=== PATIENT | female | born 1935 | race Caucasian/White ===

== ENCOUNTER 2017-03-16 16:57 | Inpatient (IN) | payer BC ==
--- NOTE | ~2017-03-16 | DS ---
Discharge Summary [id number] [place]. [address] NAME: ELI BRADLEY : 37 STATUS : DIS IN PAT#: [id number] AGE: 81 ADM/REG DATE : 03/16/17 MR#: [id number] REPORT SERV DATE: 03/18/17 DICTATED BY: NANNETTE ZUÑIGA DATE: 03/18/17 REPORT STATUS : Draft TRANSCRIBED BY: ANAIS DATE: 03/18/17 ADMISSION DATE: 03/16/2017 DISCHARGE DATE: 03/18/2017 DISCHARGE DIAGNOSES: 1. Community-acquired pneumonia, improving. 2. 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 Clifford. 3. Cough. 4. Hypertension, stable. 5. Obstructive sleep apnea. Continue CPAP at home. IMAGING: Chest x-ray, 02/24/2017: Impression: Persistent asymmetric alveolar opacity overlying the right superior hilar aspect of the lung, most concerning for pneumonia with underlying COPD. CONSULTATIONS: Oncology, Cristian Clifford M.D. COURSE OF HOSPITAL STAY: Please refer to history and physical dictated on 03/16/2017 for complete admission details as well as Dr. Clifford's dictation. This patient is an 81-year-old female who presented as a direct admission due to progressive cough and low-grade fever. The patient was admitted for IV antibiotics and further evaluation. 1. Community-acquired pneumonia. The patient had previously been on Augmentin and Levaquin at home. It was felt that she was having increase in symptoms and low-grade temp. The patient was evaluated by Dr. Clifford and then was sent as a direct admission. The patient was started on Rocephin and Zithromax IV. The patient was then changed to p.o. antibiotics. The patient has tolerated well. Blood cultures were obtained which were normal. The patient will be discharged home to complete her Levaquin antibiotic that was previously filled prior to this admission. She will follow up with Dr. Clifford on 03/20/2017. The patient will also be provided a prescription for guaifenesin and Tessalon Perles to use as needed at home. 2. 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 The patient has been followed by Oncology during her stay. She will follow up with Dr. Clifford on 03/20/2017. 3. Progressive cough. The patient has continued with guaifenesin and Tessalon Perles and prescription will be provided upon discharge. 4. Hypertension. The patient's blood pressure has been monitored and has remained stable. We will continue home medications at discharge. 5. Obstructive sleep apnea. The patient did use her own CPAP during her stay. She will continue this upon discharge. DISCHARGE MEDICATIONS: 1. Lexapro 10 mg one p.o. every morning. 2. Guaifenesin LA 600 mg and 1200 mg p.o. twice daily. 3. Synthroid 50 mcg tablet one p.o. every morning. Discharge Summary [address] [place]. [address] NAME: ELI BRADLEY : 37 STATUS : DIS IN PAT#: [id number] AGE: 81 ADM/REG DATE : 03/16/17 MR#: [id number] REPORT SERV DATE: 03/18/17 DICTATED BY: NANNETTE ZUÑIGA DATE: 03/18/17 REPORT STATUS : Draft TRANSCRIBED BY: ANAIS DATE: 03/18/17 4. Savana 180 mg one p.o. every morning. 5. Creon 24,000 units two caps p.o. three times daily. 6. Prilosec 20 mg one p.o. every morning. 7. Flonase nasal spray 50 mcg daily p.r.n. 8. Klonopin 0.5 mg one p.o. at bedtime. 9. Imodium 2 mg p.o. every six hours as needed for diarrhea. 10.Gas-X 80 mg p.o. p.r.n. 11.Topicort cream 0.25% 15 topical p.r.n. Patient is being discharged home in hemodynamically stable condition. She will follow up with Dr. Clifford on 03/20/2017. She will also complete Levaquin prescription previously filled prior to this admission. She also will be provided two prescriptions for cough as needed also. This discharge took less than 30 minutes. [facility]/ANAIS Nannette Zuñiga NP / [id number] CC: MD Jenny Mcclelland D.O.
--- NOTE | ~2017-03-16 | HP ---
History And Physical [address] [place]. [address] NAME: ELI BRADLEY : 37 STATUS : ADM IN [facility]#: [id number] AGE: 81 ADM/REG DATE : 03/16/17 MR#: [id number] REPORT SERV DATE: 03/16/17 DICTATED BY: NANNETTE ZUÑIGA DATE: 03/16/17 REPORT STATUS : Draft TRANSCRIBED BY: MODLatrice DATE: 03/16/17 DATE OF ADMISSION: 03/16/2017 CHIEF COMPLAINT: Progressive cough and low-grade fever. HISTORY OF PRESENT ILLNESS: This patient is an 81-year-old female, who presented as a direct admission from Dr. Clifford's office. She does present with complaints of persistent cough ongoing for greater than seven days, low-grade fever, increased shortness of breath. The patient does state that she has recently completed five days of Augmentin and three days of Levaquin. The patient does state that she has continued to have low-grade fevers at home. She has a persistent cough, occasional, productive. She does state that she had loose stool while on Augmentin but this has resolved. This patient does present with a history of pancreatic neuroendocrine cancer with known liver metastasis. She is under the care of Dr. Clifford. She receives monthly Sandostatin injections. REVIEW OF SYSTEMS: Otherwise negative review of systems except what is listed above. PAST MEDICAL HISTORY: 1. Neuroendocrine pancreatic cancer with known liver metastasis under the care of Dr. Clifford. 2. Obstructive sleep apnea. 3. Anxiety. 4. Hypertension. 5. PVCs. 6. Hypothyroidism. PAST SURGICAL HISTORY: 1. Right Port-A-Cath placement. 2. Whipple, 12/2015. 3. Appendectomy. 4. Hernia repair. SOCIAL HISTORY: The patient is for 50 years. Two children. Denies smoking. Denies alcohol use. Denies illicit drug use. ALLERGIES: ATENOLOL. MEDICATION: Medications to be obtained. PHYSICAL EXAMINATION: VITAL SIGNS: O2 sats 96% on room air. Temperature is 98.1, pulse is 54, respirations are 18, and blood pressure is 152/67. GENERAL: This patient is in no acute distress. NEURO: The patient is alert and oriented x3. PULMONARY: Coarse right upper lobe, normal respirations. History And Physical [address] [place]. [address] NAME: ELI BRADLEY : 37 STATUS : ADM IN [facility]#: [id number] AGE: 81 ADM/REG DATE : 03/16/17 MR#: [id number] REPORT SERV DATE: 03/16/17 DICTATED BY: NANNETTE ZUÑIGA DATE: 03/16/17 REPORT STATUS : Draft TRANSCRIBED BY: ANAIS DATE: 03/16/17 CARDIOVASCULAR: Regular rhythm. No murmurs, rubs, or gallops. ABDOMEN: Soft, nontender to touch. Bowel sounds are active. Last bowel movement 03/16/2016. EXTREMITIES: No cyanosis, no edema. LABORATORY DATA: To be obtained. IMAGING: To be obtained. ASSESSMENT AND PLAN: 1. Community-acquired pneumonia. The patient has taken five days of Augmentin and three days of Levaquin as outpatient. We will start patient on ceftriaxone and azithromycin. We will obtain a chest x-ray and laboratory data. 2. Dyspnea with hypoxia. The patient states she has an increased shortness of breath with any ambulation. We will place the patient on DuoNeb treatments every 6 hours. We will monitor O2, keep sats above 90%. 3. Neuroendocrine pancreatic cancer with known liver mets. We will consult Dr. Clifford to follow the patient during her hospital stay. 4. Persistent cough due to community-acquired pneumonia. We will add guaifenesin and Tessalon Perles as needed for cough. 5. Hypertension. We will provide hydralazine p.r.n. as needed for elevated blood pressure. 6. Obstructive sleep apnea. The patient will be allowed to use CPAP machine during her hospitalization. 7. The patient is a full code. 8. The patient will be followed by Dr. Saji Alvarado during her hospital stay. [facility]/ANAIS Nannette Zuñiga NP / [id number] CC: MD Jenny Mcclelland D.O.
[~2017-03-16 16:57] MED LIST: ACETAMINOPHEN; ALLEGRA180 PO; CALTRAT600 PO; CREON DR 3,0001 EACH PO; DSS PO; FISH OIL1200 MG PO; FLONASE NAS; IBGARD PO; IMOD PO; KLONO5 PO; KLOR-CON 1010 MEQ PO; LEXAPRO10 PO; LOTREL1 CA4 PO; MAX25 PO; MAXZIDE; MOBIC7.5 PO; MYTAB GAS80 MG PO; NIACIN; NORCO1 TA2 PO; OX10 PO; PCET PO; PRILO PO; SONATA10 MG PO; SYN.025B PO; SYN.05 PO; TOPICORT0.05 % EX; TOPXL25 PO; TYLENOL 8 HR650 MG PO; ZANTAC150 MG PO; ZOCOR10 PO; ZOCOR20 PO; [UNRECOGNIZED DRUG - OTHER]; [UNRECOGNIZED DRUG - OTHER] PO; [UNRECOGNIZED DRUG - REMARK]
[2017-03-16] MEDS ORDERED: TOPICORT CREAM15 GM TOP (19:37)
[2017-03-16 22:14] LABS: BASOPHILS 0.2 %; BASOPHILS ABSOLUTE 0.01 10/3/uL (0.0-0.16); EOSINOPHILS 3.5 %; EOSINOPHILS ABSOLUTE 0.19 10/3/uL (0.0-0.53); HEMATOCRIT 35.6 % (36.0-48.0); HEMOGLOBIN 12.3 g/dL (12.0-16.0); IMMATURE GRANULOCYTES 0.2 %; IMMATURE GRANULOCYTES ABSOLUTE 0.01 10/3/uL (0.0-0.11); LYMPHOCYTES 24.1 %; LYMPHOCYTES ABSOLUTE 1.31 10/3/uL (0.67-4.30); MEAN CORPUSCULAR VOLUME 88.6 fL (80-100); MEAN PLATELET VOLUME 9.6 fL (9.2-13.0); MONOCYTES 8.3 %; MONOCYTES ABSOLUTE 0.45 10/3/uL (0.21-1.20); NEUTROPHILS 63.7 %; NEUTROPHILS ABSOLUTE 3.47 10/3/uL (2.02-8.40); PLATELET COUNT 172 10/3/uL (150-400); RBC DISTRIBUTION WIDTH 12.9 % (12.0-16.0); RED CELL COUNT 4.02 10/6/uL (4.0-5.6); WHITE BLOOD CELLS 5.4 10/3/uL (4.5-10.5)
[2017-03-16 22:15] LABS: MEAN CORPUS HGB CONC 34.6 g/dL (32.0-36.0); MEAN CORPUSCULAR HEMOGLOB 30.6 pg (26.0-34.0)
[2017-03-16 22:16] LABS: MANUAL DIFF NO %
[2017-03-16 22:29] LABS: ALBUMIN 3.3 G/DL (3.5-5.0); BUN (BLOOD UREA NITROGEN) 13 MG/DL (6-23); CALCIUM, SERUM 9.3 MG/DL (8.5-10.4); CHLORIDE, SERUM 104 MMOL/L (96-112); CO2 (CARBON DIOXIDE) 29 MMOL/L (24-34); CREATININE 0.83 MG/DL (0.55-1.02); GFR AFRICAN AMERICAN 77 ML/MIN (>=60); GFR NON AFRICAN AMERICAN 67 ML/MIN (>=60); SGOT(AST) 33 U/L (5-40); SGPT(ALT) 27 U/L (5-65); SODIUM, SERUM 143 MMOL/L (135-148); TOTAL BILIRUBIN 0.4 MG/DL (0-1.2); TOTAL PROTEIN 7.1 G/DL (6.0-8.5)
[2017-03-16 22:30] LABS: A/G RATIO 0.9 (0.7-1.9); ALKALINE PHOSPHATASE 128 U/L (45-117); GLOBULIN 3.8 G/DL (2.5-4.1); GLUCOSE, SERUM 123 MG/DL (60-99)
[2017-03-16 22:52] LABS: PROCALCITONIN <0.05 ng/mL (<0.5)
[2017-03-17 00:42] LABS: ASCORBIC ACID (UR NOT ORDER) NEG (NEG); BILIRUBIN, URINE NEGATIVE (NEG); KETONE, URINE NEGATIVE (NEG); LEUKOCYTE ESTERASE(NOT OR NEG (NEG); WBC (NOT ORDERED) (RFLEX) 2 (0-5)
[2017-03-18] MEDS ORDERED: TESS PO (13:12)
[2017-03-18] MEDS ORDERED: MUCINEX600 MG PO (13:13)
[2017-03-18] MEDS ORDERED: LEVAQUIN5T PO (13:22)
== END 2017-03-18 16:13 | disposition home or self-care (01) | DRG 194 ==
LOC: 4SO 16:57
PROVIDERS: Internal Medicine
DX: J18.9 Pneumonia, unspecified organism (principal); C7A.8 Other malignant neuroendocrine tumors; C77.2 Secondary and unspecified malignant neoplasm of intra-abdominal lymph nodes; C25.4 Malignant neoplasm of endocrine pancreas; C78.7 Secondary malignant neoplasm of liver and intrahepatic bile duct; Z79.899 Other long term (current) drug therapy; Z88.8 Allergy status to other drugs, medicaments and biological substances; I10 Essential (primary) hypertension; M19.90 Unspecified osteoarthritis, unspecified site; E03.9 Hypothyroidism, unspecified; F41.9 Anxiety disorder, unspecified; I49.3 Ventricular premature depolarization; R09.02 Hypoxemia
CPT/HCPCS: 71020; 80053; 81001; 84145; 85025; 87040; 87070; 87205; 94640; A9270-GY; G0378; J0456; J2405